=== PATIENT | male | born 1980 | race Two or more races ===

== ENCOUNTER 2018-01-14 17:01 | Emergency (ER) | payer OTHER ==
[~2018-01-14] VITALS: Ht 165.1 cm; Wt 85.7 kg
[2018-01-14] MEDS ORDERED: VASOTEC20 M1 (17:11)
[2018-01-14] MEDS ORDERED: TENORMIN100 M1 (17:11)
[2018-01-14] MEDS ORDERED: ALFAGAN (17:12)
[2018-01-14] MEDS ORDERED: HYDROCHLOROTHIA50 MG (17:12)
[2018-01-14] MEDS ORDERED: XALATAN (17:13)
[2018-01-14] MEDS ORDERED: TIMOPTIC-XE5 M1 (17:13)
[2018-01-14] MEDS ORDERED: ZANTAC300 MG (17:14)
[2018-01-15] MEDS ORDERED: INTESTINEX680 M1 PO (06:31)
[2018-01-15] MEDS ORDERED: PEPCID40 MG PO (06:31)
[2018-01-15] MEDS ORDERED: ZOFRAN ODT4 MG PO (06:31)
[2018-01-15] MEDS ORDERED: LASIX80 MG PO (14:08)
== END 2018-01-15 06:41 | disposition home or self-care (01) ==
LOC: ER 17:01
DX: K52.9 Noninfective gastroenteritis and colitis, unspecified (principal)

== ENCOUNTER 2018-01-15 13:48 | Emergency (ER) | payer OTHER ==
[~2018-01-15] VITALS: Ht 165.1 cm; Wt 86.2 kg
[~2018-01-15 13:48] MED LIST: ALFAGAN; HYDROCHLOROTHIA50 MG; INTESTINEX680 M1 PO; PEPCID40 MG PO; TENORMIN100 M1; TIMOPTIC-XE5 M1; VASOTEC20 M1; XALATAN; ZANTAC300 MG; ZOFRAN ODT4 MG PO
[2018-01-15] MEDS ORDERED: LASIX80 MG PO (14:08)
== END 2018-01-15 18:42 | disposition home or self-care (01) ==
LOC: ER 13:48
DX: K52.9 Noninfective gastroenteritis and colitis, unspecified (principal)

== ENCOUNTER 2018-11-11 22:44 | Emergency (ER) | payer OTHER ==
[~2018-11-11] VITALS: Ht 165.1 cm; Wt 72.6 kg
[~2018-11-11 22:44] MED LIST changes: +LASIX80 MG PO
[2018-11-12] MEDS ORDERED: DICLOFENAC SODI50 MG PO (04:00)
[2018-11-12] MEDS ORDERED: INDOMETHACIN50 MG PO (04:17)
== END 2018-11-12 04:27 | disposition home or self-care (01) ==
LOC: ER 22:44
DX: S00.83XA Contusion of other part of head, initial encounter (principal); S70.02XA Contusion of left hip, initial encounter; W18.39XA Other fall on same level, initial encounter; Y93.89 Activity, other specified; Y92.89 Other specified places as the place of occurrence of the external cause; Y99.2 Volunteer activity